=== PATIENT | male | born 1965 | race Caucasian/White ===

== ENCOUNTER 2016-07-10 08:18 | Outpatient (RCR) | payer BC ==
[~2016-07-10 08:18] MED LIST: ALBUTEROL INH; CARV6.25 PO; PRIL20CA OR; advil PO
== END 2016-07-11 ==
LOC: M PT 08:18
PROVIDERS: ATTEND Orthopaedic Surgery
DX: Z51.89 Encounter for other specified aftercare (principal); Z96.642 Presence of left artificial hip joint

== ENCOUNTER 2016-07-21 08:20 | Outpatient (RCR) | payer BC | END 2016-08-08 | LOC: M PT 08:20 | PROVIDERS: ATTEND Orthopaedic Surgery | DX: Z96.642 Presence of left artificial hip joint (principal) ==